=== PATIENT | male | born 1990 | race African-American/Black ===

== ENCOUNTER 2025-03-26 06:35 | Emergency (ER) | payer SELFPAY ==
[~2025-03-26] VITALS: Ht 182.9 cm; Wt 99.8 kg
[2025-03-26 06:35] VITALS: BP 133/76; PULSE 51; RESP 16; TEMP 97.2; O2SAT 98
[2025-03-26] MEDS ORDERED: TORADOL ONE (07:14)
[2025-03-26] MEDS: TORADOL IV STA (07:19)
[2025-03-26 07:25] LABS: BASOPHIL # 0.0 10^3/uL (0.0-0.1); BASOPHIL % 0.7 % (0.2-1.2); EOSINOPHIL # 0.4 10^3/uL (0.0-0.2); EOSINOPHIL % 7.4 % (0.0-5.0); HEMATOCRIT(ML) 48.5 % (37.0-53.0); IG % 0.40 % (0.00-0.50); LYMPHOCYTES # 2.11 10^3/uL1 (1.0-4.8); LYMPHOCYTES % 37.3 % (24.0-44.0); MEAN CORP HGB 26.4 pg (26-34); MEAN CORP HGB CONCENTRATION 31.5 g/dL (33-36.5); MEAN CORP VOLUME 83.8 fL (78-100); MONOCYTES # 0.4 10^3/uL (0.3-0.8); MONOCYTES % 6.5 % (5.0-12.0); NEUTROPHIL # 2.7 10^3/uL (1.8-7.7); NEUTROPHILS % 47.7 % (41.0-85.0); RED BLOOD CELL 5.79 10^6/uL (4.50-5.90); RED CELL DISTRIBUTION WIDTH 13.7 % (11.5-14.5); WHITE BLOOD CELL 5.7 10^3/uL (4.5-11.0)
[2025-03-26 07:25] LABS: LEUKOCYTE ESTERASE ,URINE NEGATIVE (NEGATIVE); NITRATE,URINE NEGATIVE (NEGATIVE)
[2025-03-26 07:26] LABS: APPEARANCE,URINE CLEAR; UA COLOR YELLOW
[2025-03-26 07:33] VITALS: BP 133/76; PULSE 48; RESP 16; TEMP 97.2; O2SAT 98
[2025-03-26 07:40] LABS: ALANINE AMINOTRANSFERASE(ML) 79.0 U/L (12-78); ALBUMIN(ML) 4.3 g/dL (3.4-5.0); CREATININE SERUM 1.05 mg/dL (0.59-1.40); EST GFR, NON-AA 81.9 (>/=60)
[2025-03-26 08:43] VITALS: BP 117/71; PULSE 51; RESP 16; TEMP 97.2; O2SAT 98
== END 2025-03-26 08:44 | disposition home or self-care (01) ==
LOC: ER 06:35
DX: K76.0 Fatty (change of) liver, not elsewhere classified (principal); Z90.49 Acquired absence of other specified parts of digestive tract
CPT/HCPCS: 99285; 74176; 96374; 81003; 80053; 85025; 36415; 83690; J1885

== ENCOUNTER 2025-07-15 05:27 | Emergency (ER) | payer BC ==
[~2025-07-15] VITALS: Ht 182.9 cm; Wt 100.2 kg
[2025-07-15 05:30] VITALS: BP 151/96; PULSE 61; RESP 18; TEMP 97.9; O2SAT 99
[2025-07-15] MEDS ORDERED: TORADOL ONE (05:56)
[2025-07-15 06:01] LABS: BASOPHIL # 0.0 10^3/uL (0.0-0.1); BASOPHIL % 0.6 % (0.2-1.2); EOSINOPHIL # 0.2 10^3/uL (0.0-0.2); EOSINOPHIL % 3.0 % (0.0-5.0); HEMATOCRIT(ML) 46.6 % (37.0-53.0); IG % 0.30 % (0.00-0.50); LYMPHOCYTES # 2.63 10^3/uL1 (1.0-4.8); LYMPHOCYTES % 37.8 % (24.0-44.0); MEAN CORP HGB 26.7 pg (26-34); MEAN CORP HGB CONCENTRATION 31.8 g/dL (33-36.5); MEAN CORP VOLUME 84.1 fL (78-100); MONOCYTES # 0.5 10^3/uL (0.3-0.8); MONOCYTES % 7.0 % (5.0-12.0); NEUTROPHIL # 3.6 10^3/uL (1.8-7.7); NEUTROPHILS % 51.3 % (41.0-85.0); RED BLOOD CELL 5.54 10^6/uL (4.50-5.90); RED CELL DISTRIBUTION WIDTH 14.1 % (11.5-14.5); WHITE BLOOD CELL 7.0 10^3/uL (4.5-11.0)
[2025-07-15] MEDS: TORADOL IM STA (06:02)
[2025-07-15 06:17] LABS: ALANINE AMINOTRANSFERASE(ML) 55.0 U/L (12-78); ALBUMIN(ML) 4.0 g/dL (3.4-5.0); CREATININE SERUM 0.97 mg/dL (0.59-1.40); EST GFR, NON-AA 89.7 (>/=60); TROPONIN I HIGH SENSITIVITY 9.0 ng/L (0-75)
[2025-07-15 06:33] VITALS: BP 123/71; PULSE 51; RESP 18; O2SAT 97
[2025-07-15 06:59] VITALS: BP 116/78; PULSE 62; RESP 18; O2SAT 100
== END 2025-07-15 07:01 | disposition home or self-care (01) ==
LOC: ER 05:27
DX: R07.89 Other chest pain (principal); Z90.49 Acquired absence of other specified parts of digestive tract
CPT/HCPCS: 99284; 71045; 96372; 80053; 85025; 36415; 85379; 84484; 82550; 93005; J1885